=== PATIENT | female | born 2000 | race Caucasian/White ===

== ENCOUNTER 2021-01-05 14:49 | Emergency (ER) | payer SELFPAY ==
[~2021-01-05] VITALS: Ht 162 cm; Wt 65.0 kg
[2021-01-05] MEDS ORDERED: morphine INJ 10 MG/ML 1ML (SYR OR VIAL) IVP STA (15:25)
--- NOTE | 2021-01-05 15:25 | ED Abdominal Pain ---
General Chief Complaint: Abdominal/GI Problems Stated Complaint: CHEST/LRQ PAIN; NAUSEA Nursing Triage Note: CHRONIC NAUSEA ABD/CHEST PAIN X 2 YEARS WITH LUQ RIB OUT AT THAT TIME AND CAUSES SHOOTING PAIN TO THE CHEST. RLQ PAIN X 1 WEEK THAT COMES AND GOES. Source of Information: Patient Exam Limitations: No Limitations History of Present Illness Date Seen by Provider: Jan 05, 2021 Time Seen by Provider: 14:56 Initial Comments 20-year-old female with past medical history of fibromyalgia coming in due to right lower quadrant abdominal pain. Started a couple days ago and has been progressing. Has been constant with some nausea but no vomiting. No fever, vaginal discharge, dysuria, or any other concerns. Has never had pain like this before. Takes control and period was about a month ago. Never has had a ny abdominal surgeries. Has being having regular bowel movements. Allergies and Home Medications Allergies Coded Allergies: No Known Drug Allergies (Unverified , 01/05/21) Patient Home Medication List Home Medication List Reviewed: Yes Ondansetron (Ondansetron Odt) 4 Mg Tab.rapdis, 4 MG PO Q6H PRN for NAUSEA/VOMITING Prescribed by: CONRADO VERA on 01/05/21 1705 Review of Systems Review of Systems Constitutional: No chills, No fever EENTM: No Blurred Vision Respiratory: Denies Cough Cardiovascular: Chest Pain Gastrointestinal: Abdominal Pain; Denies Diarrhea; Nausea; Denies Vomiting Genitourinary: Denies Burning, Denies Discharge Musculoskeletal: no symptoms reported Skin: no symptoms reported Psychiatric/Neurological: Anxiety Endocrine: No Symptoms Reported Hematologic/Lymphatic: No Symptoms Reported All Other Systems Reviewed Negative Unless Noted: Yes Past Mptdsnj-Jaayzi-Bfrzja Hx Patient Social History Tobacco Use?: No Use of E-Cig and/or Vaping dev: No Substance use?: No Alcohol Use?: No Pt feels they are or have been: No Past Medical History Surgery/Hospitalization HX: FIBROMYALGIA Surgeries: No Physical Exam Vital Signs Vital Signs - First Documented 01/05/21 14:59 Temp 36.5 Pulse 123 Resp 17 B/P (MAP) 113/75 (88) Pulse Ox 100 O2 Delivery Room Air Capillary Refill : Less Than 3 Seconds Height/Weight/BMI Height: '" Weight: lbs. oz. kg; 24.00 BMI Method: General Appearance: WD/WN, no apparent distress HEENT: PERRL/EOMI, normal ENT inspection, pharynx normal Neck: non-tender, full range of motion, supple, normal inspection Respiratory: chest non-tender, lungs clear, normal breath sounds, no respiratory distress, no accessory muscle use Cardiovascular: regular rate, rhythm, no edema, no murmur Gastrointestinal: normal bowel sounds, soft; No distended, No guarding, No rebound; tenderness (RLQ and positive Rovsing) Extremities: normal range of motion, non-tender, normal inspection, no pedal edema, no calf tenderness, normal capillary refill Back: normal inspection, no CVA tenderness, no vertebral tenderness Neurologic/Psychiatric: no motor/sensory deficits, alert, normal mood/affect Skin: normal color, warm/dry Lymphatic: no adenopathy Progress/Results/Core Measures Results/Orders Lab Results Laboratory Tests Test 01/05/21 15:15 01/05/21 16:00 Range/Units White Blood Count 9.0 4.3-11.0 10^3/uL Red Blood Count 4.41 3.80-5.11 10^6/uL Hemoglobin 13.3 11.5-16.0 g/dL Hematocrit 40 35-52 % Mean Corpuscular Volume 90 80-99 fL Mean Corpuscular Hemoglobin 30 25-34 pg Mean Corpuscular Hemoglobin Concent 34 32-36 g/dL Red Cell Distribution Width 12.5 10.0-14.5 % Platelet Count 270 130-400 10^3/uL Mean Platelet Volume 9.8 9.0-12.2 fL Neutrophils (%) (Auto) 51 42-75 % Lymphocytes (%) (Auto) 38 12-44 % Monocytes (%) (Auto) 10 0-12 % Eosinophils (%) (Auto) 1 0-10 % Basophils (%) (Auto) 0 0-10 % Neutrophils # (Auto) 4.6 1.8-7.8 X 10^3 Lymphocytes # (Auto) 3.4 1.0-4.0 X 10^3 Monocytes # (Auto) 0.9 0.0-1.0 X 10^3 Eosinophils # (Auto) 0.1 0.0-0.3 10^3/uL Basophils # (Auto) 0.0 0.0-0.1 10^3/uL Sodium Level 142 135-145 MMOL/L Potassium Level 3.9 3.6-5.0 MMOL/L Chloride Level 106 98-107 MMOL/L Carbon Dioxide Level 25 21-32 MMOL/L Anion Gap 11 5-14 MMOL/L Blood Urea Nitrogen 11 7-18 MG/DL Creatinine 0.71 0.60-1.30 MG/DL Estimat Glomerular Filtration Rate 105 BUN/Creatinine Ratio 15 Glucose Level 99 70-105 MG/DL Calcium Level 9.3 8.5-10.1 MG/DL Corrected Calcium 8.9 8.5-10.1 MG/DL Total Bilirubin 0.3 0.1-1.0 MG/DL Aspartate Amino Transf (AST/SGOT) 24 5-34 U/L Alanine Aminotransferase (ALT/SGPT) 15 0-55 U/L Alkaline Phosphatase 83 40-136 U/L Total Protein 7.4 6.4-8.2 GM/DL Albumin 4.5 3.2-4.5 GM/DL Lipase 45 8-78 U/L Urine Color PALE YELLOW Urine Clarity CLEAR Urine pH 7.0 5-9 Urine Specific [place] 1.010 L 1.016-1.022 Urine Protein NEGATIVE NEGATIVE Urine Glucose (UA) NEGATIVE NEGATIVE Urine Ketones NEGATIVE NEGATIVE Urine Nitrite NEGATIVE NEGATIVE Urine Bilirubin NEGATIVE NEGATIVE Urine Urobilinogen 0.2 < = 1.0 MG/DL Urine Leukocyte Esterase NEGATIVE NEGATIVE Urine RBC (Auto) NEGATIVE NEGATIVE Urine RBC NONE /HPF Urine WBC RARE /HPF Urine Squamous Epithelial Cells 0-2 /HPF Urine Crystals NONE /LPF Urine Bacteria NEGATIVE /HPF Urine Casts NONE /LPF Urine Mucus NEGATIVE /LPF Urine Culture Indicated NO My Orders Orders - CONRADO VERA MD Ct Abd/Pelv W (Appendicitis) (01/05/21 15:25) Urine Bedside (01/05/21 15:25) Comprehensive Metabolic Panel (01/05/21 15:25) Lipase (01/05/21 15:25) Ua Culture If Indicated (01/05/21 15:25) Ed Iv/Invasive Line Start (01/05/21 15:25) Cbc With Automated Diff (01/05/21 15:25) Ondansetron Injection (Zofran Injectio (01/05/21 15:30) Morphine Injection (Morphine Injection (01/05/21 15:25) Lactated Ringers (Lr 1000 Ml Iv Solution (01/05/21 15:30) Iohexol Injection (Omnipaque 350 Mg/Ml 1 (01/05/21 16:00) Received Contrast (Hold Metformin- Contr (01/05/21 16:00) Sodium Chloride Flush (Catheter Flush Sy (01/05/21 16:00) Ns (Ivpb) (Sodium Chloride 0.9% Ivpb Bag (01/05/21 16:00) Ketorolac Injection (Toradol Injection) (01/05/21 17:00) Acetaminophen Tablet (Tylenol Tablet) (01/05/21 17:00) Medications Given in ED Current Medications Medications Dose Ordered Sig/Ayanna Route Start Time Stop Time Status Last Admin Dose Admin Acetaminophen 1,000 mg ONCE ONCE PO 01/05/21 17:00 01/05/21 17:01 DC 01/05/21 17:02 1,000 MG Iohexol 100 ml ONCE ONCE IV 01/05/21 16:00 01/05/21 16:01 DC 01/05/21 16:23 100 ML Ketorolac Tromethamine 15 mg ONCE ONCE IVP 01/05/21 17:00 01/05/21 17:01 DC 01/05/21 17:02 15 MG Ondansetron HCl 4 mg ONCE ONCE IVP 01/05/21 15:30 01/05/21 15:31 DC 01/05/21 15:32 4 MG Sodium Chloride 10 ml NEEDED PRN IV 01/05/21 16:00 01/05/21 16:23 10 ML Sodium Chloride 100 ml ONCE ONCE IV 01/05/21 16:00 01/05/21 16:01 DC 01/05/21 16:23 100 ML Vital Signs/I&O 01/05/21 14:59 Temp 36.5 Pulse 123 Resp 17 B/P (MAP) 113/75 (88) Pulse Ox 100 O2 Delivery Room Air Blood Pressure Mean: 88 Progress Progress Note : Progress Note 20-year-old female with above history coming in due to abdominal pain. ABCs were intact and vitals were stable on presentation. Physical exam significant for right lower quadrant abdominal pain. She is not really having much pelvic pain on exam. Differential includes appendicitis versus ovarian torsion versus some other etiology. Labs reassuring including normal urinalysis, negative test, normal white blood count, negative lipase, normal LFTs. CT imaging with appendicolith but no signs of appendicitis. She does have an ovarian cyst and some free fluid on the right, and likely ruptured an ovarian cyst which is the cause of her pain. Given Toradol after morphine and IV Zofran with improvement in her pain. Also given IV fluids. Repeat abdominal exam reassuring with no peritonitis. I discussed with the patient that this could be early appendicitis that is missed. Also there can be torsion of the ovaries that gets better. I recommended if pain gets worse then she needs to come back to the ER and potentially needs an ultrasound. Recommended follow-up with [facility]. She was then discharged home in stable condition with strict return precautions Diagnostic Imaging Diagonstic Imaging: CT Plain Films/CT/US/NM/MRI: abdomen, pelvis Comments [facility] [place], [place] NAME: JACINTO OLVERA [facility] REC#: [id number] PT STATUS: REG ER : 2000 PHYSICIAN: CONRADO VERA MD ADMIT DATE: 01/05/21/ER FS Signed Date of Exam:01/05/21 CT ABD/PELV W (APPENDICITIS) EXAMINATION: CT abdomen and pelvis with intravenous contrast. TECHNIQUE: Multiple contiguous axial images were obtained through the abdomen and pelvis after the uneventful administration of intravenous contrast. All CT scans use one or more of the following dose optimizing techniques: automated exposure control, MA and/or KvP adjustment based on patient size and exam type or iterative reconstruction. HISTORY: Right lower quadrant abdominal pain for 2 weeks. COMPARISON: None available. FINDINGS: The heart is unremarkable. The included lung bases are clear. The liver, spleen, pancreas, adrenal glands, and kidneys have a normal appearance. There is no pathologically enlarged mesenteric or retroperitoneal adenopathy. The bowel loops are nondilated. An appendicolith is seen in the tip of the appendix measuring 0.5 cm. The appendix itself is fluid-filled and nondilated. No periappendicular fat stranding is seen. There is no free air. No acute osseous abnormalities. Ureters and bladder are grossly normal. A small amount of free fluid is seen in the pelvis. Dominant follicle/cysts are seen in the bilateral ovaries. There is no free air, loculated collection, or adenopathy in the pelvis. IMPRESSION: 1. Appendicolith at the tip of the appendix with fluid-filled nondilated appendix. No periappendicular fat stranding is seen. No evidence of acute appendicitis are seen at this time. 2. Small amount of physiologic free fluid in the pelvis with bilateral follicles/cysts present. The free fluid is primarily right of midline and may contribute to the patient's history of right-sided abdominal pain. Dictated by: Dictated on workstation # [id number] Dict: 01/05/211633 Trans: 01/05/211646 [facility] [id number] Interpreted by: ASUNCION ALEXANDER DO Electronically signed by: ASUNCION ALEXANDER DO 01/05/211646 Departure Impression Primary Impression: RLQ abdominal pain Additional Impression: Ovarian cyst Qualified Codes: N83.201 - Unspecified ovarian cyst, right side; N83.202 - Unspecified ovarian cyst, left side Disposition: 01 HOME, SELF-CARE Condition: Stable Departure-Patient Inst. Decision time for Depature: 17:02 Referrals: LIDIA MASON ANGELA C DO Patient Instructions: Ovarian Cyst ED, Severe Abdominal Pain, Adult (DC) Add. Discharge Instructions: You were seen in the emergency department for abdominal pain. The CT did not show any evidence of appendicitis right now, but it is always possible that it is too early to catch, so therefore if you have worsening pain, fever, vomiting that is uncontrollable then you would need to come back to the ER. He also had an ovarian cyst that probably ruptured and this is very painful. Is not necessarily dangerous. I would recommend following up with the [facility] in [place]. That is Dr. Hood or Dr. MASON (male). If you have any other concerns and please come back to the ER. Pain take 600 mg of ibuprofen every 6 hours, you can alternate that with 1000 mg of Tylenol which he can also take every 6-8 hours with the ibuprofen. Take Zofran for nausea. All discharge instructions reviewed with patient and/or family. Voiced understanding. Scripts Ondansetron (Ondansetron Odt) 4 Mg Tab.rapdis 4 MG PO Q6H PRN for NAUSEA/VOMITING for 5 Days, #20 TAB 0 Refills Prov: CONRADO VERA MD 01/05/21 CONRADO VERA MD Jan 05, 2021 15:25
[2021-01-05] MEDS ORDERED: LACTATED RINGERS 1,000 ML IV SCH (15:30)
[2021-01-05] MEDS ORDERED: ONDANSETRON 4 MG/2 ML (SDV) Z0FRAN IVP ONE (15:30)
[2021-01-05 15:38] LABS: HEMATOCRIT 40 % (35-52); HEMOGLOBIN 13.3 g/dL (11.5-16.0); MEAN CORPUSCULAR HEMOGLOBIN 30 pg (25-34); MEAN CORPUSCULAR HGB CONC 34 g/dL (32-36); MEAN CORPUSCULAR VOLUME 90 fL (80-99)
[2021-01-05 15:39] LABS: BASOPHILS % (AUTO) 0 % (0-10); EOSINOPHILS # (AUTO) 0.1 10^3/uL (0.0-0.3); EOSINOPHILS % (AUTO) 1 % (0-10); LYMPHOCYTES # (AUTO) 3.4 X 10^3 (1.0-4.0); LYMPHOCYTES % (AUTO) 38 % (12-44); MEAN PLATELET VOLUME 9.8 fL (9.0-12.2); MONOCYTES # (AUTO) 0.9 X 10^3 (0.0-1.0); MONOCYTES % (AUTO) 10 % (0-12); NEUTROPHILS # (AUTO) 4.6 X 10^3 (1.8-7.8); NEUTROPHILS % (AUTO) 51 % (42-75); PLATELET COUNT 270 10^3/uL (130-400)
[2021-01-05 15:45] LABS: ALBUMIN 4.5 GM/DL (3.2-4.5); BILIRUBIN,TOTAL 0.3 MG/DL (0.1-1.0); CALCIUM 9.3 MG/DL (8.5-10.1); CREATININE SERUM 0.71 MG/DL (0.60-1.30); POTASSIUM 3.9 MMOL/L (3.6-5.0); TOTAL PROTEIN 7.4 GM/DL (6.4-8.2)
[2021-01-05] MEDS ORDERED: IOHEXOL 350 MG/ML 100 ML (OMNIPAQUE 350) VIAL IV ONE (16:00)
[2021-01-05] MEDS ORDERED: CATHETER FLUSH 10 ML SYR IV PRN (16:00)
[2021-01-05] MEDS ORDERED: HOLD METFORMIN - RECEIVED CONTRAST 20 ML VIAL IV SCH (16:00)
[2021-01-05] MEDS ORDERED: NS 100 ML (IVPB) BAG IV ONE (16:00)
[2021-01-05 16:18] LABS: BACTERIA,URINE NEGATIVE /HPF; BILIRUBIN,URINE NEGATIVE (NEGATIVE); CLARITY,URINE CLEAR; COLOR,URINE PALE YELLOW; GLUCOSE, URINE (UA) NEGATIVE (NEGATIVE); KETONES,URINE NEGATIVE (NEGATIVE); LEUKOCYTE ESTERASE ,URINE NEGATIVE (NEGATIVE); NITRITE,URINE NEGATIVE (NEGATIVE); PROTEIN,URINE NEGATIVE (NEGATIVE); SQUAMOUS EPITHELIAL CELL,UR 0-2 /HPF; WBC,URINE RARE /HPF
--- NOTE | 2021-01-05 16:44 | Diagnostic Imaging Report ---
EXAMINATION: CT abdomen and pelvis with intravenous contrast. TECHNIQUE: Multiple contiguous axial images were obtained through the abdomen and pelvis after the uneventful administration of intravenous contrast. All CT scans use one or more of the following dose optimizing techniques: automated exposure control, MA and/or KvP adjustment based on patient size and exam type or iterative reconstruction. HISTORY: Right lower quadrant abdominal pain for 2 weeks. COMPARISON: None available. FINDINGS: The heart is unremarkable. The included lung bases are clear. The liver, spleen, pancreas, adrenal glands, and kidneys have a normal appearance. There is no pathologically enlarged mesenteric or retroperitoneal adenopathy. The bowel loops are nondilated. An appendicolith is seen in the tip of the appendix measuring 0.5 cm. The appendix itself is fluid-filled and nondilated. No periappendicular fat stranding is seen. There is no free air. No acute osseous abnormalities. Ureters and bladder are grossly normal. A small amount of free fluid is seen in the pelvis. Dominant follicle/cysts are seen in the bilateral ovaries. There is no free air, loculated collection, or adenopathy in the pelvis. IMPRESSION: 1. Appendicolith at the tip of the appendix with fluid-filled nondilated appendix. No periappendicular fat stranding is seen. No evidence of acute appendicitis are seen at this time. 2. Small amount of physiologic free fluid in the pelvis with bilateral follicles/cysts present. The free fluid is primarily right of midline and may contribute to the patient's history of right-sided abdominal pain. Dictated by: Dictated on workstation # [id number]
[2021-01-05] MEDS ORDERED: ACETAMINOPHEN 500 MG TAB (TYLENOL) PO ONE (17:00)
[2021-01-05] MEDS ORDERED: KETOROLAC 30 MG/ML VIAL IVP ONE (17:00)
[2021-01-05] MEDS ORDERED: ONDA4TAB11 PO (17:05)
[2021-01-05 17:07] VITALS: BP 116/72
== END 2021-01-05 17:08 | disposition home or self-care (01) ==
LOC: ER FS 14:51
DX: N83.201 Unspecified ovarian cyst, right side (principal)
CPT/HCPCS: 36415; 74177; 80053; 81000; 83690; 84703; 85025; 93005

== ENCOUNTER 2021-01-22 05:42 | Outpatient (CLI) | payer BC ==
[~2021-01-22] VITALS: Ht 165.1 cm; Wt 63.1 kg
[~2021-01-22 05:42] MED LIST: ONDA4TAB11 PO
[2021-01-23] MEDS ORDERED: BIOT10TA PO (13:46)
[2021-01-23] MEDS ORDERED: DOXY25TA35 PO (13:46)
[2021-01-23] MEDS ORDERED: LORA10TA76 PO (13:46)
[2021-01-23] MEDS ORDERED: NORG1TAB14 PO (13:46)
== END 2021-01-23 14:01 | disposition home or self-care (01) ==
LOC: PREOP 05:42
PROVIDERS: ATTEND Obstetrics & Gynecology
DX: Z01.818 Encounter for other preprocedural examination (principal)

== ENCOUNTER 2021-01-29 11:07 | Day surgery (SDC) | payer BC ==
[~2021-01-29] VITALS: Ht 165.1 cm; Wt 63.1 kg
[2021-01-29] VITALS (12 sets, daily range): BP systolic 107–124; BP diastolic 53–99
[~2021-01-29 11:07] MED LIST changes: +BIOT10TA PO; +DOXY25TA35 PO; +LORA10TA76 PO; +NORG1TAB14 PO
[2021-01-29] MEDS ORDERED: ceFAZolin INJECTION 1,000 MG in WATER (STERILE) FOR INJECTION 10 ML IV ONE (11:30)
[2021-01-29 11:58] LABS: BASOPHILS % (AUTO) 1 % (0-10); EOSINOPHILS # (AUTO) 0.1 10^3/uL (0.0-0.3); EOSINOPHILS % (AUTO) 1 % (0-10); HEMATOCRIT 39 % (35-52); HEMOGLOBIN 13.1 g/dL (11.5-16.0); LYMPHOCYTES # (AUTO) 2.1 10^3/uL (1.0-4.0); LYMPHOCYTES % (AUTO) 38 % (12-44); MEAN CORPUSCULAR HEMOGLOBIN 30 pg (25-34); MEAN CORPUSCULAR HGB CONC 34 g/dL (32-36); MEAN CORPUSCULAR VOLUME 89 fL (80-99); MEAN PLATELET VOLUME 9.4 fL (9.0-12.2); MONOCYTES # (AUTO) 0.6 10^3/uL (0.0-1.0); MONOCYTES % (AUTO) 10 % (0-12); NEUTROPHILS # (AUTO) 2.7 10^3/uL (1.8-7.8); NEUTROPHILS % (AUTO) 50 % (42-75); PLATELET COUNT 293 10^3/uL (130-400); WHITE BLOOD COUNT 5.4 10^3/uL (4.3-11.0)
[2021-01-29] MEDS: LACTATED RINGERS 1,000 ML IV PRN ×2 (12:01→12:49)
[2021-01-29] MEDS ORDERED: BUPIVACAINE 0.25% 30 ML (SENSORCAINE) VIAL ONE (12:28)
[2021-01-29] MEDS ORDERED: LIDOCAINE PF 2% 5 ML (XYLOCAINE) VIAL ONE (12:37)
[2021-01-29] MEDS ORDERED: SEVOFLURANE (ULTANE) 15 ML INHAL SOLN ONE ×2 (12:37→13:32)
[2021-01-29] MEDS ORDERED: ROCURONIUM 10 MG/ML 5 ML SYRINGE IV ONE (12:37)
[2021-01-29] MEDS ORDERED: fentaNYL INJ 100 MCG/2 ML AMP ONE (12:37)
[2021-01-29] MEDS ORDERED: MIDAZOLAM 2 MG/2 ML (VERSED) VIAL ONE (12:37)
[2021-01-29] MEDS ORDERED: ONDANSETRON 4 MG/2 ML (SDV) Z0FRAN ONE ×2 (12:37→15:06)
[2021-01-29] MEDS ORDERED: proPOfol 200 MG/20 ML (DIPRIVAN) VIAL IV ONE (12:37)
--- NOTE | 2021-01-29 12:50 | Progress Note-Pre Operative ---
Pre-Operative Progress Note H&P Reviewed The H&P was reviewed, patient examined and no changes noted. Date Seen by Provider: Jan 29, 2021 Time Seen by Provider: 12:49 Date H&P Reviewed: Jan 29, 2021 Time H&P Reviewed: 12:49 Pre-Operative Diagnosis: Chronic pelvic pain PADMINI NGUYEN MD Jan 29, 2021 12:50
--- NOTE | 2021-01-29 12:50 | Progress Note-Post Operative ---
Post-Operative Progess Note Surgeon (s)/Delivery Professional (s) Surgeon PADMINI NGUYEN MD Delivery Professional: yes Pre-Operative Diagnosis Chronic pelvic pain Post-Operative Diagnosis Same With endometriosis and appendicitis and pathology pending Procedure & Operative Findings Date of Procedure 01/29/21 Procedure Performed/Findings Laparoscopy For destruction of endometriosis/adhesiolysis/laparoscopic appendectomy Anesthesia Type General Estimated Blood Loss Estimated blood loss (mL): Minimal Specimens/Packing Specimens Removed Appendix PADMINI NGUYEN MD Jan 29, 2021 12:50
[2021-01-29] MEDS ORDERED: OXYC1TAB87 PO (12:53)
[2021-01-29] MEDS ORDERED: IBUP-1780 PO (12:53)
--- NOTE | 2021-01-29 12:55 | Discharge Inst-Surgical ---
Discharge Inst-Surgical Depart Medication/Instructions New, Converted or Re-Newed RX: Transmitted to Pharmacy Consults/Follow Up Patient Instructions: As directed Orders & Referrals Follow Up Appt: Call to make follow up appt. for patient in 1 weeks. Activity: Rest for 24 hours, than as tolerated. Wound Care: May remove Band-Aid tomorrow. Replace as desired. Keep incisions clean and dry. Wash daily with soap and water. Diet: As tolerated may shower or tub bathe as desired. No driving for 24 hours, no alcoholic beverages for 24 hours, and nothing per vagina (no tampons, douching, or intercourse) for 2 weeks. Patient to return to the clinic as soon as possible for: Temperature greater than 101F, Severe Pain, Foul discharge from incision or vagina, Excessive Bleeding (more than a period). Activity Activity as Tolerated: No Diet Discharge Diet: No Restrictions PADMINI NGUYEN MD Jan 29, 2021 12:54
[2021-01-29] MEDS ORDERED: KETOROLAC 30 MG/ML VIAL IVP ONE (13:00)
[2021-01-29] MEDS ORDERED: ONDANSETRON 4 MG/2 ML (SDV) Z0FRAN IVP PRN ×2 (13:00→14:00)
[2021-01-29] MEDS ORDERED: D5 LR IV SOLUTION 1,000 ML IV SCH (13:00)
[2021-01-29] MEDS ORDERED: oxyCODONE/APAP 5/325MG (PERCOCET 5) TABLET PO PRN (13:00)
[2021-01-29] MEDS ORDERED: fentaNYL INJ 100 MCG/2 ML AMP IVP PRN (13:00)
[2021-01-29] MEDS ORDERED: NEOSTIGMINE 3 MG/3 ML VIAL ONE (13:28)
[2021-01-29] MEDS ORDERED: GLYCOPYRROLATE 0.2 MG/ML (ROBINUL) 2 ML VIAL ONE (13:28)
[2021-01-29] MEDS ORDERED: KETOROLAC 30 MG/ML VIAL ONE (13:30)
[2021-01-29] MEDS ORDERED: HYDROmorphone 2 MG/ML VIAL (DILAUDID) ONE (13:59)
[2021-01-29] MEDS ORDERED: HYDROmorphone 2 MG/ML VIAL (DILAUDID) IV ONE (14:00)
--- NOTE | 2021-01-29 15:31 | OPERATIVE REPORT ---
DATE OF SERVICE: 01/29/2021 PREOPERATIVE DIAGNOSES: Chronic pelvic pain primarily in the right lower quadrant with abnormal CT findings suggesting a problem with the appendix, but also suggesting ovarian cyst. POSTOPERATIVE DIAGNOSES: Chronic pelvic pain primarily in the right lower quadrant with abnormal CT findings suggesting a problem with the appendix, but also suggesting ovarian cyst with minimal endometriosis and with markedly abnormal appearing appendix consistent with acute appendicitis. OPERATIVE PROCEDURE: Laparoscopic treatment of endometriosis, laparoscopic adhesiolysis and laparoscopic appendectomy. OPERATIVE DESCRIPTION: With the patient in the supine position under satisfactory general anesthesia, she was repositioned in the dorsal lithotomy position in the [facility] and prepped and draped in the usual fashion for abdominal and vaginal surgery. Urinary bladder was drained with straight catheter. A weighted speculum placed in posterior fornix of vagina, cervix exposed and grasped anteriorly with single tooth tenaculum. Uterus was sounded to 9.5 cm with uterine sound. The cervix was then serially dilated with Florentino dilators to accommodate a uterine manipulator, which was placed and the bulb filled with 4 mL of air. The tenaculum and speculum were removed, and the patient brought in low dorsal lithotomy position. A 5 mm incision was made in left upper quadrant. Veress needle placed through that incision into the abdominal cavity. Correct placement confirmed with water drop test. The abdomen was insufflated with 2.4 liters of carbon dioxide and the Veress needle was removed and a 5 mm Optiview laparoscopic port was placed under direct vision. The abdominal wall was transilluminated. The patient was placed in Trendelenburg and ports of 12 mm and 5 mm were placed infraumbilically and suprapubically through incisions of those sizes. All 3 incision sites were infiltrated with 1% lidocaine with epinephrine prior to incision. The bowel spilled very promptly up out of the pelvis on its own. The uterus was normal in appearance, although slightly mottled. The tubes and ovaries appeared normal except for the distal fallopian tubes, both appeared to be somewhat clubbed. There was an obvious endometriosis implant in the base of the cul-de-sac. Both ureters were seemed to peristalse. Both ovaries appeared normal. There was a couple follicular appearing cyst on the left ovary that were perforated and aspirated to avoid postoperative pain from those as that of the etiology. The laparoscope was rotated. The appendix was densely involved in adhesions to the pelvic brim. It was markedly enlarged and injected consistent with appendicitis. The appendix was grasped and elevated. Very careful and meticulous dissection was undertaken to free it from its adhesions around the small bowel and off of the terminus of the right pericolic gutter. With the appendix freed and mesoappendix was divided over to the base of the appendix, an Endo-FIDENCIO was placed across the base of appendix and fired, severing the appendix from its attachments. The appendix was placed in an Endobag and brought out through the umbilical port and sent to pathology for permanent section. The stump of the appendix was copiously irrigated and treated with several drops of Betadine solution. The adhesions of the cecum to the pelvic brim had been taken down in the process of the appendectomy. The pelvis was irrigated and examined for hemostasis that being complete, the procedure was terminated. The operative instruments were removed under direct vision. There was no bleeding. The abdomen was evacuated insufflating gas in the process of removing the ports. Skin incisions were closed with 3-0 nylon suture. The fascia at the umbilical incision was closed with [id number] suture of 2-0 Vicryl. Sponge and needle counts were correct. Blood loss was minimal. The uterine manipulator bulb was drained. The instruments were removed from the uterus and from the vagina. Speculum replaced in the vagina, cervix examined for hemostasis, which was complete. The patient now uneventfully awakened from her general anesthesia and transferred to recovery room in stable condition with plans for discharge home PAR. Job ID: [id number] DocumentID: [id number] Dictated Date: 01/29/2021 13:37:45 [employer]cher Date: 01/29/2021 15:31:05 Dictated By: PADMINI NGUYEN MD
--- NOTE | 2021-01-29 20:17 | Anesthesia-General Post-Op ---
General Patient Condition Mental Status/LOC: Same as Preop Cardiovascular: Satisfactory Nausea/Vomiting: Absent Respiratory: Satisfactory Pain: Controlled Complications: Absent Post Op Complications Complications None Follow Up Care/Instructions Patient Instructions None needed. Anesthesia/Patient Condition Patient Condition Patient is doing well, no complaints, stable vital signs, no apparent adverse anesthesia problems. No complications reported per nursing. D/C home per [facility] Criteria: Yes ELIF XIE CRNA Jan 29, 2021 20:17
== END 2021-01-29 16:41 ==
LOC: SDC 11:07
PROVIDERS: ATTEND Obstetrics & Gynecology
DX: G89.29 Other chronic pain (principal); K35.80 Unspecified acute appendicitis; N83.291 Other ovarian cyst, right side; N83.202 Unspecified ovarian cyst, left side; N80.3 Endometriosis of pelvic peritoneum; N89.8 Other specified noninflammatory disorders of vagina; N80.9 Endometriosis, unspecified; K66.0 Peritoneal adhesions (postprocedural) (postinfection); R10.2 Pelvic and perineal pain; F32.9 Major depressive disorder, single episode, unspecified; F41.9 Anxiety disorder, unspecified; M79.7 Fibromyalgia; Z79.899 Other long term (current) drug therapy; G43.909 Migraine, unspecified, not intractable, without status migrainosus
CPT/HCPCS: 36415; 85025; 87081

== ENCOUNTER 2021-06-21 11:24 | Emergency (ER) | payer BC ==
[~2021-06-21] VITALS: Ht 162.6 cm; Wt 64.3 kg
[~2021-06-21 11:24] MED LIST changes: +IBUP-1780 PO; +OXYC1TAB87 PO
--- NOTE | 2021-06-21 11:59 | ED EENT ---
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 PT NOSE BLEED NOT BLEEDING UPON ARRIVAL. Source: patient Exam Limitations: no limitations History of Present Illness Date Seen by Provider: Jun 21, 2021 Time Seen by Provider: 11:35 Initial Comments Patient is a 21-year-old female with history of recurrent nosebleeds. Patientstarted 45 minutes prior to ED arrival. She reports dizziness nausea headache. Bleeding is through the left nares and drains down the back of the patient's throat. Denies injury or trauma. No other symptoms or complaints. Patient is not on anticoagulation or antiplatelet therapy. Timing/Duration: gradual Severity: moderate Location: nose Prearrival Treatment: other Modifying Factors: Improves With Other Associated Symptoms: other Allergies and Home Medications Allergies Coded Allergies: No Known Drug Allergies (Unverified , 01/29/21) Patient Home Medication List Home Medication List Reviewed: Yes Biotin (Biotin) 10 Mg Tablet, 10 MG PO DAILY, (Reported) Entered as Reported by: HERNANDO GERARDO on 01/23/21 1346 Doxylamine Succinate (Unisom Sleep Aid) 25 Mg Tablet, 25 MG PO HS PRN for SLEEP, (Reported) Entered as Reported by: HERNANDO GERARDO on 01/23/21 1346 Ibuprofen (Ibuprofen) 800 Mg Tablet, 800 MG PO Q6H PRN for PAIN Prescribed by: PADMINI CHILDS on 01/29/21 1253 Loratadine (Claritin) 10 Mg Tablet, 10 MG PO DAILY PRN, (Reported) Entered as Reported by: HERNANDO GERARDO on 01/23/21 1346 Norgestimate-Ethinyl Estradiol (Sprintec 28 Day Tablet) 1 Each Tablet, 1 EACH PO DAILY, (Reported) Entered as Reported by: HERNANDO GERARDO on 01/23/21 1346 Oxycodone HCl/Acetaminophen (Percocet 5-325 mg Tablet) 1 Each Tablet, 1 TAB PO Q4H Prescribed by: PADMINI CHILDS on 01/29/21 1254 Review of Systems Review of Systems Constitutional: see HPI Eyes: See HPI Ears: See HPI Nose: see HPI Mouth: see HPI Throat: see HPI Respiratory: see HPI Cardiovascular: see HPI Gastrointestinal: see HPI Musculoskeletal: see HPI Skin: see HPI Neurological: See HPI Hematologic/Lymphatic: See HPI Immunological/Allergic: see HPI All Other Systems Reviewed Negative Unless Noted: Yes Past Paphqcs-Rtcydm-Pcdrcx Hx Patient Social History Tobacco Use?: Yes Smoking Status: Never a Smoker Smokeless Tobacco Frequency: Never a User Use of E-Cig and/or Vaping dev: No Substance use?: No Alcohol Use?: Yes Alcohol Frequency: Once in a while Pt feels they are or have been: No Seasonal Allergies Seasonal Allergies: Yes Past Medical History Surgery/Hospitalization HX: FIBROMYALGIA Surgeries: No Respiratory: No Currently Using CPAP: No Currently Using BIPAP: No Cardiac: No Neurological: Yes Headaches /Migraines Female Reproductive Disorders: Endometriosis Genitourinary: No Gastrointestinal: No Musculoskeletal: Yes Fibromyalgia Endocrine: No HEENT: Yes (WEARS CONTACTS/GLASSES) Hearing Impairment: Denies Cancer: No Psychosocial: Yes Anxiety, Depression Integumentary: Yes Eczema Blood Disorders: No Physical Exam Vital Signs Vital Signs - First Documented 06/21/21 11:28 Temp 36.6 Pulse 107 Resp 14 B/P (MAP) 138/86 (103) O2 Delivery Room Air Height, Weight, BMI Height: '" Weight: lbs. oz. kg; 24.00 BMI Method: General Appearance: WD/WN, no apparent distress Eyes: bilateral eye PERRL, bilateral eye EOMI Nose: active bleeding (Left nares, no posterior oropharyngeal blood noted to be present) Neck: full range of motion Progress/Results/Core Measures Results/Orders My Orders Orders - SCOTTY VAN DO Oxymetazoline 0.05% Nasal Vanderbilt (Afrin 0. (06/21/21 21:00) Oxymetazoline 0.05% Nasal [place]bilt (Afrin 0. (06/21/21 12:05) Vital Signs/I&O 06/21/21 11:28 Temp 36.6 Pulse 107 Resp 14 B/P (MAP) 138/86 (103) O2 Delivery Room Air Blood Pressure Mean: 103 Departure Communication (Admissions) Nosebleed resolved with nasal clamp and Afrin. Vital signs stable. Recommendations are supportive care watchful waiting and PCP follow-up as needed. Return precautions reviewed. Impression Primary Impression: Epistaxis Disposition: 01 HOME, SELF-CARE Condition: Stable Departure-Patient Inst. Decision time for Depature: 11:57 Referrals: NO,LOCAL PHYSICIAN (PCP/Family) Primary Care Physician Patient Instructions: Nosebleeds ED Add. Discharge Instructions: Please use Afrin nasal spray 2 sprays per nostril twice daily as needed. If nosebleed recurs, blow clots from nose and applied nasal clamp for 20 minutes. If bleeding continues upon removing the clamp, return to the emergency department. Follow-up with your PCP as needed. All discharge instructions reviewed with patient and/or family. Voiced und erstanding. SCOTTY VAN DO Jun 21, 2021 11:59
[2021-06-21] MEDS ORDERED: OXYMETAZOLINE (AFRIN) 0.05% NA 30 ML BTL ONE (12:05)
[2021-06-21 12:28] VITALS: BP 126/75
[2021-06-21] MEDS ORDERED: OXYMETAZOLINE (AFRIN) 0.05% NA 30 ML BTL SCH (21:00)
== END 2021-06-21 12:34 | disposition home or self-care (01) ==
LOC: EDUNIT# 11:24 → ER FS 11:25
DX: R04.0 Epistaxis (principal)
CPT/HCPCS: 99281

== ENCOUNTER 2022-02-05 18:30 | Emergency (ER) | payer BC ==
[~2022-02-05] VITALS: Ht 162.5 cm; Wt 61.2 kg
[2022-02-05 18:33] VITALS: BP 81/50
[2022-02-05] MEDS ORDERED: KETOROLAC 30 MG/ML VIAL IVP ONE (18:45)
[2022-02-05] MEDS ORDERED: KETOROLAC 60 MG/2 ML VIAL IM ONE (18:45)
--- NOTE | 2022-02-05 18:46 | ED Abdominal Pain ---
General Chief Complaint: Abdominal/GI Problems Stated Complaint: ABD PAIN,VOMITING Source of Information: Patient Exam Limitations: No Limitations History of Present Illness Date Seen by Provider: Feb 05, 2022 Time Seen by Provider: 18:33 Initial Comments 21-year-old female with history of endometriosis, ovarian cyst presents to the emergency department today for abdominal pain. Symptoms started on Tuesday and have been persistent, worsening. She went to urgent care and was told she had a UTI, they called in antibiotics but she insisted upon being seen in the emergency department. She describes her pain as sharp stabbing in her mid abdomen without radiation. No aggravating or alleviating factors and the pain is constant. Associated symptoms include nausea and vomiting secondary to pain. No fevers or chills. No changes in bowels. No urinary symptoms. No vaginal symptoms. Allergies and Home Medications Allergies Coded Allergies: No Known Drug Allergies (Unverified , 01/29/21) Patient Home Medication List Home Medication List Reviewed: Yes Biotin (Biotin) 10 Mg Tablet, 10 MG PO DAILY, (Reported) Entered as Reported by: HERNANDO GERADRO on 01/23/21 1346 Doxylamine Succinate (Unisom Sleep Aid) 25 Mg Tablet, 25 MG PO HS PRN for SLEEP, (Reported) Entered as Reported by: HERNANDO GERARDO on 01/23/21 1346 Ibuprofen (Ibuprofen) 800 Mg Tablet, 800 MG PO Q6H PRN for PAIN Prescribed by: PADMINI CHILDS on 01/29/21 1253 Loratadine (Claritin) 10 Mg Tablet, 10 MG PO DAILY PRN, (Reported) Entered as Reported by: HERNANDO GERARDO on 01/23/21 1346 Norgestimate-Ethinyl Estradiol (Sprintec 28 Day Tablet) 1 Each Tablet, 1 EACH PO DAILY, (Reported) Entered as Reported by: HERNANDO GERARDO on 01/23/21 1346 Oxycodone HCl/Acetaminophen (Percocet 5-325 mg Tablet) 1 Each Tablet, 1 TAB PO Q4H Prescribed by: PADMINI CHILDS on 01/29/21 1254 Review of Systems Review of Systems Constitutional: no symptoms reported EENTM: No Symptoms Reported Respiratory: No Symptoms Reported Cardiovascular: No Symptoms Reported Gastrointestinal: Abdominal Pain, Nausea, Vomiting Genitourinary: No Symptoms Reported Musculoskeletal: no symptoms reported Skin: no symptoms reported Psychiatric/Neurological: No Symptoms Reported Endocrine: No Symptoms Reported Hematologic/Lymphatic: No Symptoms Reported Past Hwxrjyr-Bapsmd-Cuqjao Hx Patient Social History Tobacco Use?: No Substance use?: No Alcohol Use?: Yes Seasonal Allergies Seasonal Allergies: Yes Past Medical History Surgery/Hospitalization HX: FIBROMYALGIA Surgeries: No Respiratory: No Currently Using CPAP: No Currently Using BIPAP: No Cardiac: No Neurological: Yes Headaches /Migraines Female Reproductive Disorders: Endometriosis Genitourinary: No Gastrointestinal: No Musculoskeletal: Yes Fibromyalgia Endocrine: No HEENT: Yes (WEARS CONTACTS/GLASSES) Hearing Impairment: Denies Cancer: No Psychosocial: Yes Anxiety, Depression Integumentary: Yes Eczema Blood Disorders: No Family Medical History Reviewed Nursing Family Hx No Pertinent Family Hx Physical Exam Vital Signs Vital Signs - First Documented 02/05/22 18:33 Temp 37.0 Pulse 97 Resp 16 B/P (MAP) 81/50 (60) Pulse Ox 98 O2 Delivery Room Air Capillary Refill : Height/Weight/BMI Height: '" Weight: lbs. oz. kg; 24.00 BMI Method: General Appearance: WD/WN, no apparent distress HEENT: normal ENT inspection, pharynx normal Neck: non-tender, supple, normal inspection Respiratory: chest non-tender, lungs clear, normal breath sounds, no respiratory distress, no accessory muscle use Cardiovascular: regular rate, rhythm, no edema, no gallop, no JVD, no murmur Gastrointestinal: normal bowel sounds, soft, no organomegaly, no pulsatile mass, other (Patient is clutching her abdomen. Exam is out of proportion to presentation. Abdomen is soft. There is apparent tenderness in the mid abdomen diffusely. No organomegaly.) Extremities: normal range of motion, non-tender, normal inspection, no pedal edema, no calf tenderness Skin: normal color, warm/dry Lymphatic: no adenopathy Progress/Results/Core Measures Results/Orders Lab Results Laboratory Tests Test 02/05/22 18:44 02/05/22 18:46 Range/Units Urine Test NEGATIVE NEGATIVE White Blood Count 12.6 H 4.3-11.0 10^3/uL Red Blood Count 4.78 3.80-5.11 10^6/uL Hemoglobin 14.2 11.5-16.0 g/dL Hematocrit 42 35-52 % Mean Corpuscular Volume 88 80-99 fL Mean Corpuscular Hemoglobin 30 25-34 pg Mean Corpuscular Hemoglobin Concent 34 32-36 g/dL Red Cell Distribution Width 12.9 10.0-14.5 % Platelet Count 283 130-400 10^3/uL Mean Platelet Volume 9.5 9.0-12.2 fL Immature Granulocyte % (Auto) 0 % Neutrophils (%) (Auto) 74 42-75 % Lymphocytes (%) (Auto) 17 12-44 % Monocytes (%) (Auto) 7 0-12 % Eosinophils (%) (Auto) 1 0-10 % Basophils (%) (Auto) 0 0-10 % Neutrophils # (Auto) 9.4 H 1.8-7.8 10^3/uL Lymphocytes # (Auto) 2.2 1.0-4.0 10^3/uL Monocytes # (Auto) 0.9 0.0-1.0 10^3/uL Eosinophils # (Auto) 0.1 0.0-0.3 10^3/uL Basophils # (Auto) 0.1 0.0-0.1 10^3/uL Immature Granulocyte # (Auto) 0.0 0.0-0.1 10^3/uL Sodium Level 138 135-145 MMOL/L Potassium Level 3.7 3.6-5.0 MMOL/L Chloride Level 104 98-107 MMOL/L Carbon Dioxide Level 21 21-32 MMOL/L Anion Gap 13 5-14 MMOL/L Blood Urea Nitrogen 9 7-18 MG/DL Creatinine 0.62 0.60-1.30 MG/DL Estimat Glomerular Filtration Rate 130 BUN/Creatinine Ratio 15 Glucose Level 97 70-105 MG/DL Calcium Level 9.2 8.5-10.1 MG/DL Corrected Calcium 9.0 8.5-10.1 MG/DL Total Bilirubin 0.5 0.1-1.0 MG/DL Aspartate Amino Transf (AST/SGOT) 18 5-34 U/L Alanine Aminotransferase (ALT/SGPT) 13 0-55 U/L Alkaline Phosphatase 73 40-136 U/L Total Protein 7.6 6.4-8.2 GM/DL Albumin 4.3 3.2-4.5 GM/DL Lipase 40 8-78 U/L My Orders Orders - TOÑA RIOS DO Cbc With Automated Diff (02/05/22 18:39) Comprehensive Metabolic Panel (02/05/22 18:39) Lipase (02/05/22 18:39) Hcg,Qualitative Urine (02/05/22 18:40) Ct Abdomen/Pelvis Wo (02/05/22 18:40) Ketorolac Injection (Toradol Injection) (02/05/22 18:45) Ed Iv/Invasive Line Start (02/05/22 19:00) Medications Given in ED Current Medications Medications Dose Ordered Sig/Ayanna Route Start Time Stop Time Status Last Admin Dose Admin Ketorolac Tromethamine 30 mg ONCE ONCE IVP 02/05/22 18:45 02/05/22 18:46 DC 02/05/22 18:53 30 MG Vital Signs/I&O 02/05/22 18:33 Temp 37.0 Pulse 97 Resp 16 B/P (MAP) 81/50 (60) Pulse Ox 98 O2 Delivery Room Air Departure Communication (Admissions) Patient is hemodynamically stable. CT scan is negative except for some physiologic free fluid. No evidence for large ovarian cyst or concern for torsion. Intra-abdominal contents are otherwise unremarkable. I think this combination of endometriosis and urinary tract infection that was previously diagnosed at urgent care. She has sent prescription for antibiotics already. We will add Toradol. She is feeling much better after Toradol provided here. She is discharged in stable condition Impression Primary Impression: Urinary tract infection Qualified Codes: N30.01 - Acute cystitis with hematuria Additional Impression: Lower abdominal pain Disposition: HOME, SELF-CARE Condition: Stable Departure-Patient Inst. Referrals: NO,LOCAL PHYSICIAN (PCP/Family) Primary Care Physician Patient Instructions: Endometriosis (DC), Urinary Tract Infection, Adult (DC) Add. Discharge Instructions: Take the Toradol as prescribed as needed. I would get your antibiotics for UTI and take them as prescribed until they are gone. Return to the emergency department for any severe concerns. Follow-up with gynecology by calling to schedule an appointment All discharge instructions reviewed with patient and/or family. Voiced un derstanding. Scripts Ketorolac Tromethamine (Ketorolac Tromethamine) 10 Mg Tablet 10 MG PO TID for 3 Days, #9 TAB Prov: TOÑA RIOS DO 02/05/22 TOÑA RIOS DO Feb 05, 2022 18:46
[2022-02-05 18:51] LABS: BASOPHILS # (AUTO) 0.1 10^3/uL (0.0-0.1); BASOPHILS % (AUTO) 0 % (0-10); EOSINOPHILS # (AUTO) 0.1 10^3/uL (0.0-0.3); EOSINOPHILS % (AUTO) 1 % (0-10); HEMATOCRIT 42 % (35-52); HEMOGLOBIN 14.2 g/dL (11.5-16.0); LYMPHOCYTES # (AUTO) 2.2 10^3/uL (1.0-4.0); LYMPHOCYTES % (AUTO) 17 % (12-44); MEAN CORPUSCULAR HEMOGLOBIN 30 pg (25-34); MEAN CORPUSCULAR HGB CONC 34 g/dL (32-36); MEAN CORPUSCULAR VOLUME 88 fL (80-99); MEAN PLATELET VOLUME 9.5 fL (9.0-12.2); MONOCYTES # (AUTO) 0.9 10^3/uL (0.0-1.0); MONOCYTES % (AUTO) 7 % (0-12); NEUTROPHILS # (AUTO) 9.4 10^3/uL (1.8-7.8); NEUTROPHILS % (AUTO) 74 % (42-75); PLATELET COUNT 283 10^3/uL (130-400); WHITE BLOOD COUNT 12.6 10^3/uL (4.3-11.0)
--- NOTE | 2022-02-05 19:09 | Diagnostic Imaging Report ---
PROCEDURE: CT abdomen and pelvis without contrast. TECHNIQUE: Multiple contiguous axial images were obtained through the abdomen and pelvis without the use of intravenous contrast. Auto Exposure Controls were utilized during the CT exam to meet ALARA standards for radiation dose reduction. INDICATION: Abdominal pain COMPARISON: 01/05/2021 Unenhanced images of liver and spleen reveal no focal abnormality. There is no evidence of pancreatic, gallbladder or adrenal gland abnormality. Kidneys are unremarkable without hydronephrosis or discrete mass. No free fluid is seen in the abdomen. There has been right lower quadrant surgery compatible with appendectomy. There is a small amount of pelvic free fluid. Urinary bladder is largely collapsed and unopacified. No organized fluid collection or focal inflammation is identified. IMPRESSION: Small amount of pelvic free fluid may be physiologic in nature. No definite acute abnormality is seen. Dictated by: Dictated on workstation # [id number]
[2022-02-05 19:10] LABS: ALBUMIN 4.3 GM/DL (3.2-4.5); BILIRUBIN,TOTAL 0.5 MG/DL (0.1-1.0); CALCIUM 9.2 MG/DL (8.5-10.1); CREATININE SERUM 0.62 MG/DL (0.60-1.30); POTASSIUM 3.7 MMOL/L (3.6-5.0); TOTAL PROTEIN 7.6 GM/DL (6.4-8.2)
[2022-02-05] MEDS ORDERED: KETO10TA PO (19:15)
[2022-02-06] MEDS ORDERED: PROM25SU44 RC (20:23)
[2022-02-06] MEDS ORDERED: PROM25TA14 PO (20:23)
[2022-02-06] MEDS ORDERED: PANT40TA52 PO (21:04)
[2022-02-06] MEDS ORDERED: HYOS0.1283 SL (21:04)
== END 2022-02-05 19:18 | disposition home or self-care (01) ==
LOC: EDUNIT# 18:30 → ER FS 18:32
DX: N39.0 Urinary tract infection, site not specified (principal); Z32.02 Encounter for pregnancy test, result negative
CPT/HCPCS: 36415; 74176; 80053; 83690; 84703; 85025

== ENCOUNTER 2022-02-06 19:57 | Emergency (ER) | payer BC ==
[~2022-02-06 19:57] MED LIST changes: +KETO10TA PO
[2022-02-06] MEDS ORDERED: KETOROLAC 30 MG/ML VIAL IVP ONE (20:15)
[2022-02-06] MEDS ORDERED: DROPERIDOL 5 MG/2 ML (INAPSINE) ED ONLY! IV ONE (20:15)
[2022-02-06] MEDS ORDERED: cefTRIAXone 1 GM PRE-MIX 50 ML IV ONE (20:15)
[2022-02-06] MEDS ORDERED: NS IV 1000 ML 1,000 ML IV STA (20:15)
--- NOTE | 2022-02-06 20:22 | ED Abdominal Pain ---
General Chief Complaint: Abdominal/GI Problems Stated Complaint: ABD PAIN, DEHYD & VOMITING Nursing Triage Note: Pt complaining of abdominal pain and n/v. Pt was seen in urgent care yesterday and diagnosed with a uti. Pt then came to the ED shortly after to be evaluated. Pt states she isn't feeling any better tonight and hasn't been able to keep her antibiotics down even with her nausea medication Source of Information: Patient Exam Limitations: No Limitations History of Present Illness Date Seen by Provider: Feb 06, 2022 Time Seen by Provider: 20:00 Initial Comments 21-year-old female with past medical history of endometriosis, ovarian cyst, and recent diagnosis of UTI coming in due to persistent lower abdominal pain. She was seen in the emergency department for lower abdominal pain yesterday, had a normal lab evaluation and normal CT scan without concerning findings. Prior to that she had been to an urgent care and had a diagnosis of UTI, and has not started her Bactrim yet. She tried to take the antibiotics today, but has had persistent nausea with nonbloody nonbilious vomiting, and is unable to keep her medicines down. Denies any fever, chills, chest pain, shortness of breath, vag inal discharge, vaginal bleeding, rash, or any other concerns. Allergies and Home Medications Allergies Coded Allergies: No Known Drug Allergies (Unverified , 01/29/21) Patient Home Medication List Home Medication List Reviewed: Yes Biotin (Biotin) 10 Mg Tablet, 10 MG PO DAILY, (Reported) Entered as Reported by: HERNANDO GERARDO on 01/23/21 1346 Doxylamine Succinate (Unisom Sleep Aid) 25 Mg Tablet, 25 MG PO HS PRN for SLEEP, (Reported) Entered as Reported by: HERNANDO GERARDO on 01/23/21 1346 Ibuprofen (Ibuprofen) 800 Mg Tablet, 800 MG PO Q6H PRN for PAIN Prescribed by: PADMINI CHILDS on 01/29/21 1253 Ketorolac Tromethamine (Ketorolac Tromethamine) 10 Mg Tablet, 10 MG PO TID Prescribed by: TOÑA RIOS MD on 02/05/221914 Loratadine (Claritin) 10 Mg Tablet, 10 MG PO DAILY PRN, (Reported) Entered as Reported by: HERNANDO GERARDO on 01/23/21 1346 Norgestimate-Ethinyl Estradiol (Sprintec 28 Day Tablet) 1 Each Tablet, 1 EACH PO DAILY, (Reported) Entered as Reported by: HERNANDO GERARDO on 01/23/21 1346 Oxycodone HCl/Acetaminophen (Percocet 5-325 mg Tablet) 1 Each Tablet, 1 TAB PO Q4H Prescribed by: PADMINI CHILDS on 01/29/21 1254 Promethazine HCl (Promethazine Tablet) 25 Mg Tablet, 25 MG PO Q6H PRN for NAUSEA/VOMITING-2ND LINE Prescribed by: CONRADO VERA on 02/06/222022 Promethazine HCl (Promethazine Suppository) 25 Mg Supp.rect, 25 MG RC Q6H PRN for NAUSEA/VOMITING-3RD LINE Prescribed by: CONRADO VERA on 02/06/222022 Review of Systems Review of Systems Constitutional: No fever EENTM: No Blurred Vision Respiratory: Denies Cough Cardiovascular: Denies Chest Pain Gastrointestinal: Abdominal Pain, Nausea, Vomiting Genitourinary: No Symptoms Reported Musculoskeletal: no symptoms reported Skin: no symptoms reported Psychiatric/Neurological: No Symptoms Reported Endocrine: No Symptoms Reported Hematologic/Lymphatic: No Symptoms Reported All Other Systems Reviewed Negative Unless Noted: Yes Past Bmvwqmk-Owxtto-Afrvow Hx Patient Social History Tobacco Use?: No Use of E-Cig and/or Vaping dev: No Substance use?: No Alcohol Use?: Yes Pt feels they are or have been: No Seasonal Allergies Seasonal Allergies: Yes Past Medical History Surgery/Hospitalization HX: FIBROMYALGIA Surgeries: Yes Appendectomy Respiratory: No Currently Using CPAP: No Currently Using BIPAP: No Cardiac: No Neurological: Yes Headaches /Migraines Female Reproductive Disorders: Endometriosis Genitourinary: No Gastrointestinal: No Musculoskeletal: Yes Fibromyalgia Endocrine: No HEENT: Yes (WEARS CONTACTS/GLASSES) Hearing Impairment: Denies Cancer: No Psychosocial: Yes Anxiety, Depression Integumentary: Yes Eczema Blood Disorders: No Family Medical History No Pertinent Family Hx Physical Exam Vital Signs Vital Signs - First Documented 02/06/22 20:01 Temp 36.6 Pulse 84 Resp 18 B/P (MAP) 128/73 (91) Pulse Ox 99 O2 Delivery Room Air Capillary Refill : Less Than 3 Seconds Height/Weight/BMI Height: '" Weight: lbs. oz. kg; 23.00 BMI Method: General Appearance: WD/WN, no apparent distress HEENT: PERRL/EOMI, normal ENT inspection, pharynx normal Neck: non-tender, full range of motion, supple, normal inspection Respiratory: chest non-tender, lungs clear, normal breath sounds, no respiratory distress, no accessory muscle use Cardiovascular: regular rate, rhythm, no edema, no murmur Gastrointestinal: normal bowel sounds, soft; No distended, No guarding, No rebound; tenderness Extremities: normal range of motion, non-tender, normal inspection, no pedal edema, no calf tenderness, normal capillary refill Back: normal inspection, no CVA tenderness, no vertebral tenderness Neurologic/Psychiatric: no motor/sensory deficits, alert, normal mood/affect Skin: normal color, warm/dry Lymphatic: no adenopathy Progress/Results/Core Measures Results/Orders My Orders Orders - CONRADO VERA MD Droperidol Inj (Ed Only) (Inapsine Inj ( (02/06/22 20:15) Ketorolac Injection (Toradol Injection) (02/06/22 20:15) Ceftriaxone 1 Gm Pre-Mix (Rocephin 1 Gm (02/06/22 20:15) Ns Iv 1000 Ml (Sodium Chloride 0.9%) (02/06/22 20:15) Lidocaine 2% Viscous 15 Ml (Xylocaine Vi (02/06/22 21:15) Pepcid Po (02/06/22 21:01) Mylanta Po (02/06/22 21:15) Levsin Sl Po (02/06/22 21:15) Medications Given in ED Current Medications Medications Dose Ordered Sig/Ayanna Route Start Time Stop Time Status Last Admin Dose Admin Ceftriaxone Sodium/Dextrose 50 ml @ 100 mls/hr ONCE ONCE IV 02/06/22 20:15 02/06/22 20:44 DC 02/06/22 20:22 100 MLS/HR Droperidol 2.5 mg ONCE ONCE IV 02/06/22 20:15 02/06/22 20:16 DC 02/06/22 20:22 2.5 MG Ketorolac Tromethamine 15 mg ONCE ONCE IVP 02/06/22 20:15 02/06/22 20:16 DC 02/06/22 20:22 15 MG Vital Signs/I&O 02/06/22 20:01 Temp 36.6 Pulse 84 Resp 18 B/P (MAP) 128/73 (91) Pulse Ox 99 O2 Delivery Room Air Blood Pressure Mean: 91 Progress Progress Note : Progress Note 21-year-old female with above history coming in due to lower abdominal pain, nausea, vomiting. ABCs were intact and vitals were stable on presentation. I personally reviewed the patient's chart, and she did have an appendectomy last year, also during that laparoscopy they noted endometriosis. I reviewed her labs and imaging from yesterday. Her CT scan did not show any ovarian cyst at that time. Unlikely to be torsion related. We will not repeat work-up today, but will try to give her medicines to help with symptoms. She states she is unable to keep her antibiotics down for her UTI, we will give her 1 dose of ceftriaxone here so that she is covered, and even if she does not finish her antibiotics, likely would be beneficial. I believe she is stable for discharge with outpatient follow-up. She was sent home with strict return precautions. Prior to discharge, repeat abdominal exam showing no signs of peritonitis Departure Impression Primary Impression: Endometriosis Additional Impressions: Lower abdominal pain Vomiting in adult Disposition: 01 HOME, SELF-CARE Condition: Stable Departure-Patient Inst. Decision time for Depature: 20:45 Referrals: FAB MILLAN,LOCAL PHYSICIAN (PCP) Primary Care Physician Patient Instructions: Nausea and Vomiting, Adult ED Add. Discharge Instructions: The antibiotic we gave you potentially could take care of the UTI by itself, but continue to finish the antibiotic you are prescribed if you are able. Try the Zofran you have at home for nausea, if that does not work you can try the Phenergan oral, if you are unable to keep that down then you can try the Phenergan suppository. Continue to try the Toradol as needed for pain. If you have persistent pain, I would follow back up with Dr. NGUYEN as this could be endometriosis related, and the you may need a reevaluation. I also recommend following up with Dr. Millan in [place] to be evaluated to see if he thinks you need an upper GI scope to look for an ulcer. We will preemptively start you on an acid medicine to help with this if it is an ulcer. Scripts Hyoscyamine Sulfate (Levsin-Sl) 0.125 Mg Tab.subl 0.125 MG SL Q4H PRN for abdominal spasm for 3 Days, #18 TAB 0 Refills Prov: CONRADO VERA MD 02/06/22 Pantoprazole Sodium (Pantoprazole Sodium) 40 Mg Tablet.dr 40 MG PO DAILY for 30 Days, #30 TAB Prov: CONRADO VERA MD 02/06/22 Promethazine HCl (Promethazine Suppository) 25 Mg Supp.rect 25 MG RC Q6H PRN for NAUSEA/VOMITING-3RD LINE for 3 Days, #12 SUPP.RECT only use if not tolerating oral anti-nausea medicine Prov: CONRADO VERA MD 02/06/22 Promethazine HCl (Promethazine Tablet) 25 Mg Tablet 25 MG PO Q6H PRN for NAUSEA/VOMITING-2ND LINE for 5 Days, #20 TAB Prov: CONRADO VERA MD 02/06/22 Work/School Note: Work Release Form Date Seen in the Emergency Department: Feb 06, 2022 Return to Work: Feb 08, 2022 Restrictions: Return-No Vomiting(24hrs) CONRADO VERA MD Feb 06, 2022 20:22
[2022-02-06] MEDS ORDERED: PROM25SU44 RC (20:23)
[2022-02-06] MEDS ORDERED: PROM25TA14 PO (20:23)
[2022-02-06] MEDS ORDERED: FAMOTIDINE 20 MG (PEPCID) TABLET PO STA (21:01)
[2022-02-06] MEDS ORDERED: HYOS0.1283 SL (21:04)
[2022-02-06] MEDS ORDERED: PANT40TA52 PO (21:04)
[2022-02-06 21:12] VITALS: BP 128/73
[2022-02-06] MEDS ORDERED: ANTACID SUSP 30 ML UDC (MYLANTA) PO ONE (21:15)
[2022-02-06] MEDS ORDERED: HYOSCYAMINE 0.125 MG (LEVSIN) TAB SL ONE (21:15)
[2022-02-06] MEDS ORDERED: LIDOCAINE 2% VISCOUS 15 ML UDC PO ONE (21:15)
== END 2022-02-06 21:12 | disposition home or self-care (01) ==
LOC: EDUNIT# 19:57 → ER FS 19:59
DX: N80.9 Endometriosis, unspecified (principal); R11.2 Nausea with vomiting, unspecified; N39.0 Urinary tract infection, site not specified; Z28.310 Unvaccinated for COVID-19
CPT/HCPCS: 96361; 96374; 96375; 99283

== ENCOUNTER 2022-09-29 16:39 | Emergency (ER) | payer OTHER, BC ==
[~2022-09-29] VITALS: Ht 165 cm; Wt 61.0 kg
[~2022-09-29 16:39] MED LIST changes: +HYOS0.1283 SL; +PANT40TA52 PO; +PROM25SU44 RC; +PROM25TA14 PO
[2022-09-29] MEDS ORDERED: NS IV 1000 ML 1,000 ML IV STA (16:46)
[2022-09-29 16:53] VITALS: BP 112/77
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
[2022-09-29 17:20] LABS: BASOPHILS # (AUTO) 0.1 10^3/uL (0.0-0.1); BASOPHILS % (AUTO) 1 % (0-10); EOSINOPHILS # (AUTO) 0.2 10^3/uL (0.0-0.3); EOSINOPHILS % (AUTO) 2 % (0-10); HEMATOCRIT 36 % (35-52); HEMOGLOBIN 11.7 g/dL (11.5-16.0); LYMPHOCYTES # (AUTO) 3.3 10^3/uL (1.0-4.0); LYMPHOCYTES % (AUTO) 31 % (12-44); MEAN CORPUSCULAR HEMOGLOBIN 30 pg (25-34); MEAN CORPUSCULAR HGB CONC 33 g/dL (32-36); MEAN CORPUSCULAR VOLUME 91 fL (80-99); MONOCYTES # (AUTO) 1.3 10^3/uL (0.0-1.0); MONOCYTES % (AUTO) 12 % (0-12); NEUTROPHILS # (AUTO) 5.8 10^3/uL (1.8-7.8); NEUTROPHILS % (AUTO) 54 % (42-75); PLATELET COUNT 249 10^3/uL (130-400); WHITE BLOOD COUNT 10.6 10^3/uL (4.3-11.0)
[2022-09-29 17:30] LABS: BILIRUBIN,URINE NEGATIVE (NEGATIVE); CLARITY,URINE CLOUDY; COLOR,URINE YELLOW; GLUCOSE, URINE (UA) NEGATIVE (NEGATIVE); KETONES,URINE NEGATIVE (NEGATIVE); LEUKOCYTE ESTERASE ,URINE 2+ (NEGATIVE); NITRITE,URINE NEGATIVE (NEGATIVE); PH,URINE 6.5 (5-9); PROTEIN,URINE NEGATIVE (NEGATIVE)
[2022-09-29 17:37] LABS: BACTERIA,URINE FEW /HPF; URINE OTHER CLUE CELLS PRESENT /HPF
[2022-09-29 17:39] LABS: POTASSIUM 3.8 MMOL/L (3.6-5.0)
[2022-09-29 17:40] LABS: BILIRUBIN,TOTAL 0.3 MG/DL (0.1-1.0); CALCIUM 8.3 MG/DL (8.5-10.1)
[2022-09-29 17:41] LABS: ALBUMIN 3.8 GM/DL (3.2-4.5); CREATININE SERUM 0.92 MG/DL (0.60-1.30); MAGNESIUM 1.7 MG/DL (1.6-2.4); TOTAL PROTEIN 6.5 GM/DL (6.4-8.2)
[2022-09-29] MEDS ORDERED: METR-145 PO (17:45)
[2022-09-29] MEDS ORDERED: metroNIDAZOLE 500 MG (FLAGYL) TAB PO STA (17:46)
== END 2022-09-29 18:00 | disposition home or self-care (01) ==
LOC: EDUNIT# 16:39 → ER FS 16:42
DX: E86.0 Dehydration (principal); N76.0 Acute vaginitis; X30.XXXA Exposure to excessive natural heat, initial encounter
CPT/HCPCS: 36415; 80053; 81000; 83735; 84703; 85025